=== PATIENT | female | born 1990 | race African-American/Black ===

== ENCOUNTER 2019-04-23 12:44 | Emergency (ER) | payer OTHER ==
[~2019-04-23] VITALS: Ht 167.6 cm; Wt 60.0 kg
[2019-04-23 13:43] LABS: INFLUENZA A PATIENT NEGATIVE (NEGATIVE); INFLUENZA B PATIENT NEGATIVE (NEGATIVE)
[2019-04-23] MEDS ORDERED: AMOX1TAB61 PO (13:58)
--- NOTE | 2019-04-23 13:59 | PHYS DOC ---
Past History Past Medical History: Anxiety, Depression Past Surgical History: Hysterectomy Alcohol Use: None Drug Use: None Adult General Chief Complaint Chief Complaint: FLU SYMPTOM HPI HPI Patient is a 28-year-old female who presents with complaint of cough, sinus drainage, fever, chills and body aches that has been going on for last 2 days. Patient denies any vomiting or diarrhea. She rates her aches is moderate. She states that the mucus production from cough is yellow in color.[] Review of Systems Review of Systems Constitutional: Positive fever and chills [] HENT: Positive sinus congestion and sore throat [] Respiratory: Positive cough without shortness of breath [] Cardiovascular: No additional information not addressed in HPI [] Integument: Denies rash or skin lesions [] Neurologic: Denies headache, focal weakness or sensory changes [] Allergies Allergies Allergies Coded Allergies Type Severity Reaction Last Updated Verified No Known Drug Allergies 04/23/19 No Physical Exam Physical Exam Constitutional: Well developed, well nourished, no acute distress, non-toxic appearance. [] HENT: Normocephalic, atraumatic, both frontal and maxillary sinuses are tender to percussion and palpation bilaterally, oropharynx moist, no oral exudates, nose normal. [] Neck: Normal range of motion, no tenderness, supple, no stridor. [] Cardiovascular:Heart rate regular rhythm, no murmur [] Lungs & Thorax: Bilateral breath sounds clear to auscultation [] Extremities: No tenderness, no cyanosis, no clubbing, ROM intact, no edema. [] Current Patient Data Vital Signs Vital Signs Date Time Temp Pulse Resp B/P (MAP) Pulse Ox O2 Delivery O2 Flow Rate FiO2 04/23/19 12:45 99.7 107 18 100 Room Air Lab Results Laboratory Tests Test 04/23/19 13:00 Influenza Type A (Rapid) Negative (NEGATIVE) Influenza Type B (Rapid) Negative (NEGATIVE) EKG EKG [] Radiology/Procedures Radiology/Procedures [] Course & Med Decision Making Course & Med Decision Making Pertinent Labs and Imaging studies reviewed. (See chart for details) [] Dragon Disclaimer Dragon Disclaimer This electronic medical record was generated, in whole or in part, using a voice recognition dictation system. Departure Departure: Impression: Primary Impression: Acute sinusitis Disposition: 01 HOME, SELF-CARE Condition: STABLE Referrals: MIGUEL BOWSER DO, [facility] (PCP) Patient Instructions: Sinusitis Scripts Amoxicillin/Potassium Clav (AUGMENTIN 875-125 TABLET) 1 Each Tablet 1 TAB PO BID for infection for 10 Days, #20 TAB 0 Refills Prov: ADAL LAND Jr., DO 04/23/19 Problem Qualifiers Primary Impression: Acute sinusitis Sinusitis location: unspecified location Recurrence: non-recurrent Qualified Codes: J01.90 - Acute sinusitis, unspecified ADAL LAND Jr., DO Apr 23, 2019 13:59
[2019-04-23 14:03] VITALS: BP 137/58
== END 2019-04-23 14:05 | disposition home or self-care (01) ==
LOC: ER 12:44
DX: J01.90 Acute sinusitis, unspecified (principal); F41.9 Anxiety disorder, unspecified; F32.9 Major depressive disorder, single episode, unspecified
CPT/HCPCS: 87804; 99284